=== PATIENT | female | born 1995 | race Hispanic/Latino ===

== ENCOUNTER → 2019-10-21 | Outpatient (CLI) | payer OTHER ==
--- NOTE | 2019-10-22 02:44 | REP ---
Clinical: well-being evaluation. Comparison: 10/10/2019 . Findings: Examination demonstrates a single live intrauterine in breech presentation. motion is identified by technologist. Placenta is noted posterior/right lateral and grade I I without evidence for placenta previa or abruption. Amniotic fluid volume is normal. Cervix measures 3.1 cm in length and appears closed. Nuchal cord noted. Gestational age by LMP 32 weeks 1 day with SHARI 12/15/2019 . FHR equals 141 beats per minute. Biophysical profile score: 6/8 ( breathing - 0 ) Amniotic fluid index: 21.4 cm Umbilical cord SD ratio: 2.01 Impression: 1. Single live intrauterine in breech presentation. 2. Biophysical profile score 6/8 (with 0 score for breathing). 3. Amniotic fluid index upper normal. 4. Nuchal cord noted. Electronically Signed by Archie Frederick MD 10/22/2019 02:35 A
== END ==
LOC: M LRY 13:55
PROVIDERS: ATTEND Advanced Practice Midwife
DX: O13.3 Gestational [pregnancy-induced] hypertension without significant proteinuria, third trimester (principal); Z3A.32 32 weeks gestation of pregnancy; O32.1XX0 Maternal care for breech presentation, not applicable or unspecified

== ENCOUNTER → 2019-10-30 | Outpatient (CLI) | payer OTHER ==
[~2019-10-30] MED LIST: ALBU83IN INH; ASPI81TA85 PO; FOLI1TAB11 PO; LABE10TAB PO; LORA24TA PO; PRENTAB9 PO; TUMS500C PO
--- NOTE | 2019-10-31 03:26 | REP ---
Clinical: well-being Comparison: 10/21/2019 . Findings: Examination demonstrates a single live intrauterine in cephalic presentation. motion is identified by technologist. Placenta is noted right posterior and grade I I without evidence for placenta previa or abruption. Amniotic fluid volume is normal. Cervix appears closed. No evidence for nuchal cord. Gestational age by LMP 33 weeks 4 days with SHARI 12/14/2019 . Gestational age by first US 33 weeks 3 days with SHARI 12/15/2019 . FHR equals 144 beats per minute. Biophysical profile score: 8/8 Amniotic fluid volume: 18.1 cm Umbilical cord SD ratio: 2.26 Impression: Single live advanced gestation in cephalic presentation. Biophysical profile score and amniotic fluid volume are normal. Electronically Signed by Archie Frederick MD 10/31/2019 03:18 A
== END ==
LOC: M LRY 13:59 → EDUNIT# 14:00
PROVIDERS: ATTEND Advanced Practice Midwife
DX: O10.013 Pre-existing essential hypertension complicating pregnancy, third trimester (principal); Z3A.33 33 weeks gestation of pregnancy

== ENCOUNTER 2019-11-27 07:51 | Inpatient (IN) | payer OTHER ==
[2019-11-27] VITALS (13 sets, daily range): BP systolic 131–165; BP diastolic 68–88
[~2019-11-27] VITALS: Ht 165.1 cm; Wt 157.8 kg
--- NOTE | 2019-11-27 10:17 | HPEPDOC ---
Obstetrical History & Physical General Date of Admission Nov 27, 2019 at 07:51 History of Present Illness 24-year-old 1 at 38 weeks 1 day estimated gestational age, presents for induction of labor secondary to chronic hypertension. care has been appropriate throughout. She initiated care first trimester for [facility]. She is currently on 100 mg of labetalol twice daily Chief Complaint: Induction of labor Information Provided By: Patient Age: 24 : 1 Care Care: Good Care Dating Final EDC: Dec 10, 2019 Final EDC by: LMP LMP: Mar 05, 2019 Past Medical History Past Obstetrical History : Past Obstetrical History: Primgravida Past Medical History Medical History Chronic hypertension, anxiety, depression, asthma, GERD, obesity Surgical History: Denies/None Family History Significant Family History: No pertinent family hx Social History Marital Status: Family situation: Spouse/partner home Psychosocial History: Anxiety, Depression * Smoker: non-smoker Alcohol: Denies Allergies Coded Allergies: codeine (Verified Allergy, Severe, HEART RACES AND THEN STOPS, 11/27/19) SEASONAL ALLERGIES (Verified Allergy, Mild, NASAL CONGESTION, 11/27/19) Medications Scheduled Aspirin (Aspir 81) 81 Mg Tablet.dr, 81 MG PO DAILY for pain Folic Acid (Folic Acid) 1 Mg Tablet, 1 TAB PO DAILY Labetalol HCl (Labetalol HCl) 100 Mg Tablet, 100 MG PO BID Loratadine/Pseudoephedrine (Loratadine-D 24Hr Tablet) 1 Each Tab.er.24h, 1 TAB PO DAILY No.137/Iron/Folic Acd ( Vitamin Tablet) 1 Each Tablet, 1 TAB PO DAILY Scheduled PRN Calcium Carbonate (Tums) 200 Mg Tab.chew, 1,000 MG PO for HEARTBURN Miscellaneous Medications Albuterol Sulf (Albuterol Sulfate) 2.5 Mg/3 Ml Vial.neb, 2.5 MG INH for COUGH FROM ALLERGIES Physical Examination Physical Examination GENERAL: Alert and oriented times three. BREAST: . ABDOMEN: Gravid and non-tender to touch. FETUS: Is vertex (VTX) by sterile vaginal examination (SVE), fetus is vertex (VTX) by [place]. HEART RATE: Regular rate and rhythm. LUNGS: Clear to auscultation (CTA). Laboratory Data 24H LABS Laboratory Tests 2 11/27/19 07:54: Serology Scanned Report Hepatitis B Testing Pertinent Laboratoy Data Blood Type: O+ RBC Antibody Screen: Negative HIV: Negative Hepatitis B: Negative Rubella: Nonreactive Chlamydia/Gonorrhea: Negative Vaginal Examination Dilation: None Station: -3 Cervical Position: Posterior Presentation: Cephalic presentation Assessment Variability: Moderate Accelerations: Positive Tocometer Contractions: No Assessment/Plan Assessment 1. 24-year-old 1 at 38 weeks 1 day estimated gestational age by last which. Here for induction labor secondary to chronic hypertension. 2. Morbid obesity. 3. Reassuring status. Admit to labor and delivery, CBC, RPR, type and screen preeclamptic panel. Patient thoroughly counseled regards, induction of labor. Discussed medication as well as procedures performed labor and delivery. She is also been verbally consented for emergency surgery, blood products anesthesia desires to proceed with admission. Will initiate her induction labor with 50 g oral misoprostol Plan Admit and orient. Wire Walker and consent. Diet: Regular. Group B Streptococcus (GBS) negative. Labs and intravenous (IV) per unit protocol. Counseled on Pitocin and induction of labor (IOL). Anticipate normal spontaneous delivery (). C-S as appropriate. OSBALDO SANTANA MD. Nov 27, 2019 10:17
[2019-11-27 11:20] LABS: HEMATOCRIT 35.1 % (36.0-47.0); HEMOGLOBIN 11.9 g/dl (12.0-15.5); MEAN CORPUSCULAR HEMOGLOBIN 28.3 pg (27.0-33.0); MEAN CORPUSCULAR HGB CONC 33.9 g/dl (32.0-36.5); MEAN CORPUSCULAR VOLUME 83.4 fl (80.0-96.0); PLATELET COUNT, AUTOMATED 358 10^3/uL (150-450); RED BLOOD COUNT 4.21 10^6/uL (4.00-5.40); WHITE BLOOD COUNT 10.7 10^3/uL (4.0-10.0)
[2019-11-27 11:24] LABS: ALT/SGPT 22 U/L (12-78); BILIRUBIN,TOTAL 0.2 MG/DL (0.2-1.0); GLOMERULAR FILTRATION RATE > 60.0 (>60); LDH LACTATE DEHYDROGENASE 140 U/L (84-246); URIC ACID 4.5 MG/DL (2.6-6.0)
[2019-11-27] MEDS: miSOPROStol 50 MCG 1/2 TAB (S0191) PO SCH ×3 (11:26→20:11)
[2019-11-27] MEDS ORDERED: TUMS500C PO (11:34)
[2019-11-27] MEDS ORDERED: ASPI81TA85 PO (11:34)
[2019-11-27] MEDS ORDERED: PRENTAB9 PO (11:34)
[2019-11-27] MEDS ORDERED: FOLI1TAB11 PO (11:34)
[2019-11-27] MEDS ORDERED: LORA24TA PO (11:34)
[2019-11-27] MEDS ORDERED: LABE10TAB PO (11:34)
[2019-11-27] MEDS ORDERED: ALBU83IN INH (11:44)
[2019-11-27] MEDS: LABETALOL 100 MG TAB PO SCH (21:19)
[2019-11-28] VITALS (19 sets, daily range): BP systolic 122–155; BP diastolic 59–86
[2019-11-28] MEDS: miSOPROStol 50 MCG 1/2 TAB (S0191) PO SCH ×5 (00:24→23:44)
--- NOTE | 2019-11-28 01:28 | IPNPDOC ---
Obstetrical Progress Note Date of Service Nov 28, 2019 Subjective Patient is doing well. She is on her fourth dose of misoprostol and describing her discomfort as crampy, increased segment and intensity. She is requesting IV pain medication. Objective Vital Signs Date Time Temp Pulse Resp B/P (MAP) Pulse Ox O2 Delivery O2 Flow Rate FiO2 11/27/19 22:31 79 144/84 (104) 11/27/19 19:47 97.2 18 Assessment Variability: Moderate Heart Rate Tracing: Category I Tocometer Contractions: Yes Frequency: irregular Assessment and Plan Age: 24 : 1 Status: Reassuring OSBALDO SANTANA MD. Nov 28, 2019 01:28
[2019-11-28] MEDS ORDERED: PROMETHAZINE INJ 25 MG/ML VIAL (J2550) IV PRN (01:30)
[2019-11-28] MEDS ORDERED: BUTORPHANOL 2 MG/ML INJ (J0595) IV ONE (01:30)
[2019-11-28] MEDS: LABETALOL 100 MG TAB PO SCH ×2 (08:50→20:50)
--- NOTE | 2019-11-28 10:06 | IPNPDOC ---
Text Note Date of Service The patient was seen on 11/28/19. NOTE Patient is a 24yo G1 @ 38+2wks gestation admitted yesterday for IOL secondary to CHTN. she has had 5doses of 50mcg cytotec. patient is feeling mild contractions vitals: normal to mild range nad laying in bed fht: 145/mod adrian/pos accel/no decel toco: ctx q 5-6mins ce: internal os closed/long/high, soft, mid. a/p patient not in labor. unable to place solorio bulb. cytotec 50mcg buccal. reassess in 4hrs. Yisel, VS,Freemanbone, I+O VS, Fishbone, I+O Laboratory Tests 11/27/19 10:10 Vital Signs Date Time Temp Pulse Resp B/P (MAP) Pulse Ox O2 Delivery O2 Flow Rate FiO2 11/28/19 08:50 88 146/86 11/28/19 08:49 98.4 18 I&O- Last 24 Hours up to 6 AM 11/28/19 06:00 Intake Total 960 ml Balance 960 ml ANDREI HINTON DO Nov 28, 2019 10:06
[2019-11-28] MEDS ORDERED: PROMETHAZINE INJ 25 MG/ML VIAL (J2550) IV ONE (18:45)
[2019-11-28] MEDS ORDERED: MORPHINE 10 MG/ML 1ML VIAL (J2270) IV ONE (18:45)
[2019-11-28] MEDS ORDERED: MORPHINE 10 MG/ML 1ML VIAL (J2270) IM ONE (18:45)
--- NOTE | 2019-11-28 18:48 | IPNPDOC ---
Text Note Date of Service The patient was seen on 11/28/19. NOTE late entry, procedure performed around 1430 today. Patient is a 24yo G1 @ 38+2wks gestation admitted yesterday for IOL secondary to CHTN. she has had 6doses of 50mcg cytotec. patient is feeling mild contractions vitals: normal to mild range nad laying in bed fht: 145/mod adrian/pos accel/no decel toco: ctx q 3-5mins ce: 1/long/high, mid, medium a/p patient not in labor. solorio bulb placed with 80cc of saline on cervical side. may redose cytotec as appropriate. Pain medication to start with IV. Le, DO VS,Fishbone, I+O VS, Fishbone, I+O Vital Signs Date Time Temp Pulse Resp B/P (MAP) Pulse Ox O2 Delivery O2 Flow Rate FiO2 11/28/19 18:29 98.4 83 127/83 (98) 11/28/19 14:57 18 I&O- Last 24 Hours up to 6 AM 11/28/19 06:00 Intake Total 960 ml Balance 960 ml ANDREI HINTON DO Nov 28, 2019 18:48
--- NOTE | 2019-11-28 23:28 | IPNPDOC ---
Obstetrical Progress Note Date of Service Nov 28, 2019 Subjective [place] of Care Note S: Received report from Dr. Morillo and assumed care of Aron, a 24yo at 38+2wks, who is on day two of her IOL for CHTN on meds (Labetalol 100mg BID). She has received 6 doses of cytotec (5 PO that she swallowed, and 1 buccal; all 50mcg). A CRB was placed at 1445 today. She reports +FM and some cramping, denies LOF/VB. Her is complicated by CHTN, Class III Obesity (BMI 49.6) - with excessive weight gain, anxiety/depression, and asthma. Objective O: VSS, afebrile, BP mild range (denies s/sx of Pre-E) FHR 140s, moderate variability, no accels or decels CTX by TOCO, q 3-5 minutes, sometimes spaced out and irregular VE: deferred as CRB is still snug in place Vital Signs Date Time Temp Pulse Resp B/P (MAP) Pulse Ox O2 Delivery O2 Flow Rate FiO2 11/28/19 20:50 144/79 11/28/19 20:49 78 18 11/28/19 18:29 98.4 Assessment and Plan Status: Reassuring Group B Streptococcus: Negative Anticipate: Vaginal Delivery Additional Comments A: 24yo at 38+2 weeks, not in labor, day #2 of IOL for CHTN, mild range BPs, Category I FHT. P: CEFM x2 Close monitoring of maternal/ status Plan to give 7th dose of 50mcg cytotec via buccal route - this was discussed with Dr. Morillo Plan to start pitocin later Co-Manage with OB Anticipate APRIL PICHARDO CNM Nov 28, 2019 23:28
[2019-11-29] VITALS (33 sets, daily range): BP systolic 95–143; BP diastolic 33–83
--- NOTE | 2019-11-29 07:36 | IPNPDOC ---
Text Note Date of Service The patient was seen on 11/29/19. NOTE patient is @ 38+4wks gestation, day #3 of induction for CHTN. she had 7 doses of misoprostol and solorio bulb placed and was removed 12 hrs after. No additional management was done overnight due to board acuity. She is feeling mild contractions. vitals: normal NAD fht: 130/mod adrian/pos accel/no decel toco: ctx q 7 mins a/p patient not in labor. will start pit. recheck 6hrs from start of regular ctx. arom as appropriate. VS,Fishbone, I+O VS, Fishbone, I+O Vital Signs Date Time Temp Pulse Resp B/P (MAP) Pulse Ox O2 Delivery O2 Flow Rate FiO2 11/29/19 07:14 98.2 75 20 128/71 (90) 99 Room Air ANDREI HINTON DO Nov 29, 2019 07:36
[2019-11-29] MEDS: LR 1,000 ML IV SCH ×3 (08:11→19:09)
[2019-11-29] MEDS: LABETALOL 100 MG TAB PO SCH ×2 (08:54→21:11)
[2019-11-29] MEDS: OXYTOCIN DRIP 30 UNITS in IV 1 EA IV SCH (10:46)
--- NOTE | 2019-11-29 17:17 | IPNPDOC ---
Text Note Date of Service The patient was seen on 11/29/19. NOTE patient is feeling mild contractions pit at 14mU Vitals: normal NAD fht: 135/mod adrian/pos accel/no decel toco: ctx q 3mins ce: 4/long/high, unable to AROM a/p patient in latent labor. continue to titrate pit to affect. recheck 6-8hrs. sooner PRN. Le, DO VS,Freemanbone, I+O VS, Fishbone, I+O Vital Signs Date Time Temp Pulse Resp B/P (MAP) Pulse Ox O2 Delivery O2 Flow Rate FiO2 11/29/19 15:55 73 95/53 (67) 11/29/19 15:51 98.1 20 98 Room Air ANDREI HINTON DO Nov 29, 2019 17:17
[2019-11-30] VITALS (47 sets, daily range): BP systolic 116–187; BP diastolic 56–96
--- NOTE | 2019-11-30 00:20 | IPNPDOC ---
Text Note Date of Service The patient was seen on 11/30/19. NOTE patient on 20mU pit. not feeling painful contraction. having difficulty tracing baby consistently due to maternal habitus. vitals: normal NAD FHT: 140/mod adrian/pos accel/no decel toco: ctx q 6mins ce: /-3, placement of fse caused AROM, clear fluid, baby's head well applied. a/p patient in latent labor. continue to titrate pit to effect. recheck in 4-6hrs. Yisel, VS,Anhe, I+O VS, Fishbone, I+O Vital Signs Date Time Temp Pulse Resp B/P (MAP) Pulse Ox O2 Delivery O2 Flow Rate FiO2 11/29/19 21:11 73 119/69 11/29/19 19:17 20 11/29/19 18:16 98.4 100 Room Air I&O- Last 24 Hours up to 6 AM 11/30/19 06:00 Intake Total 2930 ml Output Total 1600 ml Balance 1330 ml ANDREI HINTON DO Nov 30, 2019 00:20
[2019-11-30] MEDS ORDERED: MORPHINE 10 MG/ML 1ML VIAL (J2270) IV ONE (01:45)
[2019-11-30] MEDS ORDERED: PROMETHAZINE INJ 25 MG/ML VIAL (J2550) IV ONE (01:45)
[2019-11-30] MEDS ORDERED: MORPHINE 10 MG/ML 1ML VIAL (J2270) IM ONE (01:45)
--- NOTE | 2019-11-30 07:24 | IPNPDOC ---
Text Note Date of Service The patient was seen on 11/30/19. NOTE patient feeling painful contractions. AROM since midnight. She received morphine and phenergan for pain overnight. pit: 20mU vitals: normal nad fht; 145/mod adrian/pos accel/no decel toco: ctx q 2mins ce: 4-5/50/-3 a/p patient in latent labor. discussed possible need for IUPC if still unchanged with next check. continue with pit to effect. recheck in 4-6hrs. Le, DO VS,Freemanbone, I+O VS, Fishbone, I+O Vital Signs Date Time Temp Pulse Resp B/P (MAP) Pulse Ox O2 Delivery O2 Flow Rate FiO2 11/30/19 06:17 79 136/67 (90) 11/30/19 02:29 15 11/29/19 18:16 98.4 100 Room Air I&O- Last 24 Hours up to 6 AM 11/30/19 06:00 Intake Total 2930 ml Output Total 1600 ml Balance 1330 ml ANDREI HINTON DO Nov 30, 2019 07:24
[2019-11-30] MEDS: LR 1,000 ML IV SCH ×2 (08:11→16:52)
[2019-11-30] MEDS: LABETALOL 100 MG TAB PO SCH ×2 (08:12→22:24)
[2019-11-30 09:17] LABS: HEMATOCRIT 36.7 % (36.0-47.0); HEMOGLOBIN 12.3 g/dl (12.0-15.5); MEAN CORPUSCULAR HEMOGLOBIN 27.8 pg (27.0-33.0); MEAN CORPUSCULAR HGB CONC 33.5 g/dl (32.0-36.5); PLATELET COUNT, AUTOMATED 336 10^3/uL (150-450); RED BLOOD COUNT 4.42 10^6/uL (4.00-5.40); WHITE BLOOD COUNT 12.4 10^3/uL (4.0-10.0)
[2019-11-30] MEDS ORDERED: FENTANYL 2MCG/ML ROPIVACAINE 0.2% IN 0.9% NACL 100ML IVBAG As Ordered ONE ×2 (09:25→17:46)
[2019-11-30] MEDS: FENTANYL/ROPIVACAINE/NACL BAG 100 ML EPIDURAL SCH ×2 (09:58→17:50)
[2019-11-30] MEDS ORDERED: NALOXONE INJ 0.4MG/1ML VIAL (J2310 PER 1MG) IV PRN ×3 (10:30→21:51)
[2019-11-30] MEDS ORDERED: EPIDURAL/PCA KEYS XX PRN (10:30)
[2019-11-30] MEDS ORDERED: diphenhydrAMINE 50MG/ML VIAL (J1200) IV PRN ×3 (10:30→22:30)
[2019-11-30] MEDS ORDERED: REFRIGERATOR IV KEYS XX PRN (10:30)
[2019-11-30] MEDS ORDERED: ONDANSETRON 4MG/2ML VIAL IV PRN ×3 (10:30→22:30)
[2019-11-30] MEDS ORDERED: ePHEDrine SULFATE 25 MG/5 ML(5MG/ML) SYRINGE IV PRN (10:30)
[2019-11-30] MEDS ORDERED: LACTATED RINGER'S 1000 ML IV PRN (10:30)
[2019-11-30] MEDS ORDERED: EPIDURAL COMMENT XX SCH (10:30)
--- NOTE | 2019-11-30 15:52 | IPN ---
DATE: 11/30/2019 This lady is a 24-year-old 1 at 38 weeks and 1 day of gestation who presented for induction of labor because of chronic hypertension. She has been taking labetalol 100 twice a day throughout, and she was admitted on 11/27/2019, at 7:51 a.m. At that time when her induction was started, her risk factors are she has a class III obesity with a body mass index (BMI) starting at the first visit of 49.6. She in her total has gained 44 pounds. Her blood pressures have been remarkably stable with intermittent spikes on labetalol 100 twice a day. She has anxiety, depression, which is stable. Not taking any medications. She does have gastroesophageal reflux disease (GERD). She had asthma as a child, and she takes albuterol on a as-needed basis. Her induction was started with 50 mcg of oral misoprostol. Over the course of the last 4 days, she has had seven misoprostols at 50 mg a piece. She has had Pitocin running for the past 27 hours, maximized at 20 milliunits. She has had an intrauterine pressure catheter (IUPC) and a scalp because of her obesity and difficulty in tracing the baby. Baby is always had a category 1 strip with accelerations and moderate variability and no decelerations. She also had a Cook's catheter placed in the vagina at the cervical level, which fell out. She is GBS negative. She had a spontaneous rupture of membranes with the insertion of the IUPC. Presently, examining her, she is only 2-3 cm at -3 to -4, not well applied. She does have leaking intermittently, because she had had a spontaneous rupture of membranes at placement of the IUPC. We had a discussion with the patient regarding plan of care moving forward. The fact that she has been on 443 mL of Pitocin, seven misoprostols, one Cook's catheter, failure to make any progress with ruptured membranes, the likelihood of vaginal delivery is remote, and the recommendation would be preparedness for primary section. We discussed the risks and benefits of primary section, including hemorrhage, infection, perforation, , the remote possibility of a blood transfusion, the remote possibility of hysterectomy because of uncontrolled bleeding. This lady's uterus is at risk for a significant atony at delivery because of a prolonged use of Pitocin and misoprostol. We discussed with her the possible risks again of blood transfusion and/or hysterectomy if bleeding is under not under control. We did mention to her that we have medications at the time of delivery, either vaginal or abdominal, to have a Methergine, to have Cytotec per rectum. There is Hemabate, and there is tranexamic acid, which has been used in cases of hemorrhage. She presently has a good output. Her blood pressures are stabilized. Baby is in a category 1 strip. Our plan was to discontinue the Pitocin despite the fact she has IUPC and a scalp electrode in order to let the uterus relax enough to help with a contraction further along. After discussing this with the patient, she was somewhat concerned of the fact that she was told she was 5-6, when in fact she is 2-3 and -3, and presenting part is not well applied. We offered her a section under controlled situation. We also discussed the use of an Optifoam for incision dressing and the possible use of a specialized dressing which has a vacuum attached to it in order to reduce the incidence of infection. At present she has peau d'orange with edema, dependent in the incisional area and just above. We answered all her questions and her 's, and she had declined to have a section. She is requesting to wait for another physician.
[2019-11-30] MEDS: OXYTOCIN DRIP 30 UNITS in IV 1 EA IV SCH (16:52)
--- NOTE | 2019-11-30 16:56 | IPNPDOC ---
Text Note Date of Service The patient was seen on 11/30/19. NOTE patient has epidural. AROM since midnight. oxytocin is off since 1330. Vitals: normal NAD fht: 155/mod adrian/pos accel/no decel toco: not picking up contractions ce: 4-5/50/-3, IUPC placed a/p patient in latent labor, no change since last checked. Discussed with patient and spouse regarding my concern for failed induction. at this point, patient can opt to have a section vs. placing IUPC and start pitocin. Reassess in 2hrs. She is approaching 18hrs of ROM with oxytocin. concern for increased risk of infection with prolonged rupture of membranes and increased significant risk of bleeding with prolonged labor. patient and spouse expresses understand ing and desires to continue to attempt labor. DO ALVINA Morillo,Martin, I+O VS, Anhe, I+O Laboratory Tests 11/30/19 09:09 Vital Signs Date Time Temp Pulse Resp B/P (MAP) Pulse Ox O2 Delivery O2 Flow Rate FiO2 11/30/19 15:21 82 18 131/64 (86) 11/30/19 14:51 98.7 11/29/19 18:16 100 Room Air I&O- Last 24 Hours up to 6 AM 11/30/19 05:59 Intake Total 2930 ml Output Total 1600 ml Balance 1330 ml ANDREI MORILLO DO Nov 30, 2019 16:56
[2019-11-30] MEDS ORDERED: ceFAZolin SOD 2 GM in IV 1 EA IV ONE (20:15)
[2019-11-30] MEDS ORDERED: AZITHROMYCIN INJ 500 MG, VIAL MATE ADAPTER 1 EACH in D5W 250 ML IV ONE (20:15)
[2019-11-30] MEDS ORDERED: TRANEXAMIC ACID INJection 1,000 MG in D5W 100 ML IV ONE (20:15)
[2019-11-30] MEDS ORDERED: ceFAZolin SOD 1 GM in D5W MINI-BAG PLUS 50 ML IV ONE (20:15)
[2019-11-30] MEDS ORDERED: ceFAZolin SOD 3 GM in IV 1 EA IV ONE (20:15)
[2019-11-30] MEDS ORDERED: BICITRA 30ML SOLN UDC As Ordered ONE (20:16)
--- NOTE | 2019-11-30 20:18 | IPNPDOC ---
Text Note Date of Service The patient was seen on 11/30/19. NOTE patient on 12mU pit vitals: normal NAD fht:150/mod adrian/pos accel/no decel IUPC: ctx q 3-5mins ce: 4-5/50/-3 a/p no change. patient AROM and on pit > 18hrs. cervix remained solorio bulb cervix. at this point discussed with patient diagnosis of failed induction. Recommend delivery. Risks of bleeding needing blood transfusion, possible hysterectomy, infection needing take back and IV antibiotics, injury to bowel and bladder as well as post op pain discussed with patient. patient and spouse expressed understanding and agrees to move forward with section. consent forms signed. pit off. ancef 3gm, azithro 500mg IV and txa 1000mg ordered to give in OR. back to OR once team ready. Yisel, VS,Martin, I+O VS, Fishbone, I+O Laboratory Tests 11/30/19 09:09 Vital Signs Date Time Temp Pulse Resp B/P (MAP) Pulse Ox O2 Delivery O2 Flow Rate FiO2 11/30/19 16:51 98.1 79 18 145/74 (97) 11/29/19 18:16 100 Room Air I&O- Last 24 Hours up to 6 AM 11/30/19 06:00 Intake Total 2930 ml Output Total 1600 ml Balance 1330 ml ANDREI HINTON DO Nov 30, 2019 20:18
[2019-11-30] MEDS ORDERED: TRANEXAMIC ACID 100 MG/ML 10ML VIAL As Ordered ONE (20:19)
[2019-11-30] MEDS ORDERED: LIDOCAINE 2% W/EPINEPHRINE 20ML VIAL **PRES FREE As Ordered ONE (20:20)
[2019-11-30] MEDS ORDERED: OXYTOCIN INJ 10 UNITS/ML VIAL (J2590) As Ordered ONE (20:21)
[2019-11-30] MEDS ORDERED: BICITRA 30ML SOLN UDC PO ONE (20:30)
[2019-11-30] MEDS ORDERED: LIDOCAINE PRES-FREE 2% 10ML AMP As Ordered ONE (21:01)
[2019-11-30] MEDS ORDERED: ONDANSETRON 4MG/2ML VIAL As Ordered ONE (21:13)
[2019-11-30] MEDS ORDERED: KETOROLAC 60MG 2ML VIAL As Ordered ONE (21:13)
[2019-11-30] MEDS ORDERED: dexameTHASONE 4 MG/ML 1ML VIAL (J1100 PER 1MG) As Ordered ONE (21:13)
[2019-11-30] MEDS ORDERED: PHENYLephrine HCL 500 MCG/5 ML (100MCG/ML) SYRINGE (J2370) As Ordered ONE (21:28)
[2019-11-30] MEDS ORDERED: MORPHINE PRES-FREE INJ 10 MG/10 ML VIAL (J2274) As Ordered ONE (21:29)
[2019-11-30] MEDS ORDERED: miSOPROStol 200 MCG TAB (S0191) As Ordered ONE (21:40)
[2019-11-30] MEDS ORDERED: METOCLOPRAMIDE INJ 10MG/2ML VIAL (J2765 PER 1) IV PRN (21:51)
[2019-11-30] MEDS ORDERED: NALBUPHINE HCL 10 MG/ML AMP (J2300) IV PRN (21:51)
[2019-11-30] MEDS ORDERED: RHOGAM 300 MCG (1500 IU) INJ (J2790) IM SCH (22:00)
[2019-11-30] MEDS ORDERED: MEASLES,MUMPS,RUBELLA VACCINE INJ (MMR-II) (90707) SC SCH (22:00)
[2019-11-30] MEDS ORDERED: LR 1,000 ML IV SCH (22:00)
[2019-11-30] MEDS ORDERED: PERCOCET 5MG/325MG TAB PO PRN (22:00)
--- NOTE | 2019-11-30 22:16 | DNPDOC ---
[facility] Delivery Note Delivery Note DATE OF DELIVERY: 11/30/19 PREDELIVERY DIAGNOSIS: 1. 38+4/7 weeks' gestation. 2. CHTN 3. Obesity 4. Failed induction POST DELIVERY DIAGNOSIS: 1. 2. CHTN 3. Obesity PROCEDURE: Primary low transverse section MAKEUP ARTIST: Dr. Andrei Morillo DO ANESTHESIA: epidural ESTIMATED BLOOD LOSS: 600 mL. FINDINGS: 3320gm, 7lbs 50z, male infant, Score 9/9, compound right hand DELIVERY SUMMARY: Uncomplicated primary low transverse section. see operative notes for details. . ANDREI MORILLO DO Nov 30, 2019 22:16
[2019-11-30] MEDS ORDERED: MEPERIDINE INJ 25 MG/ML VIAL (J2175) IV PRN (22:30)
[2019-11-30] MEDS ORDERED: oxyCODONE 5MG TAB PO PRN (22:30)
[2019-11-30] MEDS ORDERED: fentaNYL 100 MCG/2 ML INJECTION (J3010) IV PRN (22:30)
[2019-11-30] MEDS ORDERED: KETOROLAC 30 MG/ML 1ML VIAL IV PRN (22:30)
[2019-11-30] MEDS ORDERED: HYDROMORPHONE HCL 0.5 MG/ 0.5 ML SYRINGE (J1170 PER 1) IV PRN (22:30)
[2019-11-30] MEDS ORDERED: ePHEDrine SULFATE 25 MG/5 ML(5MG/ML) SYRINGE As Ordered ONE (23:00)
[2019-11-30] MEDS ORDERED: PERCOCET 5MG/325MG TAB As Ordered ONE (23:30)
[2019-12-01] VITALS (9 sets, daily range): BP systolic 119–157; BP diastolic 60–89
[2019-12-01] MEDS ORDERED: miSOPROStol 200 MCG TAB (S0191) PR ONE (02:15)
[2019-12-01] MEDS: KETOROLAC 30 MG/ML 1ML VIAL IV SCH ×4 (03:41→22:02)
[2019-12-01] MEDS: ENOXAPARIN 40MG/0.4ML SYRINGE (J1650 PER 10MG) SC SCH ×2 (05:36→17:36)
[2019-12-01 09:34] LABS: HEMATOCRIT 32.9 % (36.0-47.0); MEAN CORPUSCULAR HGB CONC 33.4 g/dl (32.0-36.5); MEAN CORPUSCULAR VOLUME 83.7 fl (80.0-96.0); PLATELET COUNT, AUTOMATED 320 10^3/uL (150-450); RED BLOOD COUNT 3.93 10^6/uL (4.00-5.40); WHITE BLOOD COUNT 14.4 10^3/uL (4.0-10.0)
[2019-12-01] MEDS: PRENATAL VITAMINS CHEWABLE TABLET PO SCH (09:41)
[2019-12-01] MEDS: DOCUSATE SODIUM 100 MG CAP PO SCH ×2 (09:43→22:02)
[2019-12-01] MEDS: LABETALOL 100 MG TAB PO SCH ×2 (09:44→22:03)
--- NOTE | 2019-12-01 11:30 | POST-OPPD ---
Postoperative Procedure Note Date Of Procedure: Nov 30, 2019 Preoperative DIAGNOSIS: 1. 38+4/7 weeks' gestation. 2. CHTN 3. Obesity 4. Failed induction Post operative DIAGNOSIS: 1. 2. CHTN 3. Obesity PROCEDURE: Primary low transverse section ANESTHESIA: epidural ESTIMATED BLOOD LOSS: 600 mL. FINDINGS: 3320gm, 7lbs 50z, male , Score 9/9, compound right hand SURGEON: Sukumar Morillo DO MANAGER [employer]: Agnieszka Lanier MD ANESTHESIA: Epidural REPLACED: 1600cc LR DRAINS: 300cc urine COMPLICATIONS: none POSTOPERATIVE CONDITION: stable Detailed summary of procedure. Indication for procedure: Patient is a 24 yo G1 @ 38+4wks with admitted for IOL for CHTN. Her induction failed to progress passed 4cm dilation. Description of procedure: The risks, benefits, indications and alternatives to the procedure were reviewed with the patient and informed consent was obtained. Labor epidural anesthesia was dosed for surgical analgesic. She was prepped and draped in the normal sterile fashion in the dorsal supine position with a leftward tilt. The abdomen was entered through a pfannenstiel incision. Sharp dissection taken down to fascia layer. Fascia layer entered with sharply and carried lateral and upward bilaterally. Space between fascia and rectus muscle created sharply. The rectus muscles and peritoneum bluntly along midline and exposes the gravid uterus. Mobius retractor placed. The vesicouterine peritoneum was identified. A Liang uterine incision made sharply. The uterine incision was extended superolaterally. Baby cephalic. Head delivered through the hysterotomy. The anterior (left) shoulder delivered, followed by the posterior shoulder. Body followed with ease. The cord was clampedx2 and cut. The was handed off to baby nurse. Pitocin bolus started. Cord blood collected for routine lab. The placenta delivered spontaneously. The uterus was cleared of all clots and debris. The uterine incision was repaired with 2 layers of using 0-Chromic in a running locking fashion and 0-monocryl imbricating layer. Hysterotomy inspected to be hemostatic. Mobius retractor removed. Gutters were cleared of clots. Hysterotomy inspected to be hemostatic. The peritoneum, fascia and muscle bellies were inspected and noted to be hemostatic. The peritoneum brought back together midline with 3-0 vicryl. The fascia approximated with 0 vicryl suture in a running fashion. The subcutaneous tissue closed with 3-0 vicryl. The skin was closed with subcuticular 4-0 monocryl. Dressing applied. The vagina was cleared of clots. Sponge laps, needle and instruments count correct x 2. Patient taken to recovery room in stable condition. DO MARY JANE Morillo LUAT N. DO Nov 30, 2019 22:19
--- NOTE | 2019-12-01 12:36 | IPNPDOC ---
Progress Note Date of Service: Dec 01, 2019 Day#: 1 Progress Note SUBJECT: Patientis a 24 yo s/p PLTCD for failed induction POD #1. complicated by CHTN on labetalol 100mg BID. She has been ambulating, and tolerating regular diet. attempting breast feeding. Reports lochia is like a normal period. Saab out this am, not yet voided. OBJECTIVE: VITAL SIGNS: Within normal limits, afebrile. Alert and oriented times three. Abdomen: Fundus firm at U-2. Soft, NTTP. Incision with dressing on. LE: non pitting edema. symmetrical, no erythema/tenderness CBD reviewed. A/P pod #1, doing well. discussed postoperative care. continue routine post op care. encouraged BF. due to void later today. Continue with labetalol 100mg BID. disposition pending bp control. Le, DO VS, I&O, 24H, Fishbone Vital Signs/I&O Vital Signs Date Time Temp Pulse Resp B/P (MAP) Pulse Ox O2 Delivery O2 Flow Rate FiO2 12/01/19 10:00 96.7 81 18 97 Room Air 12/01/19 09:44 137/77 I&O- Last 24 Hours up to 6 AM 12/01/19 06:00 Intake Total 2015 ml Output Total 5475 ml Balance -3460 ml Laboratory Data 24H LABS Laboratory Tests 2 12/01/19 07:53: Nucleated Red Blood Cells % (auto) 0.0 CBC/BMP Laboratory Tests 12/01/19 07:53 ANDREI HINTON DO Dec 01, 2019 12:36
[2019-12-02 02:00] VITALS: BP 131/65
[2019-12-02] MEDS: IBUPROFEN 800 MG TAB PO SCH ×2 (05:46→13:51)
[2019-12-02] MEDS: ENOXAPARIN 40MG/0.4ML SYRINGE (J1650 PER 10MG) SC SCH ×2 (05:47→17:49)
[2019-12-02 06:00] VITALS: BP 136/73
[2019-12-02] MEDS: PRENATAL VITAMINS CHEWABLE TABLET PO SCH (07:34)
[2019-12-02 07:35] VITALS: BP 146/80
[2019-12-02] MEDS: DOCUSATE SODIUM 100 MG CAP PO SCH (07:35)
[2019-12-02] MEDS: LABETALOL 100 MG TAB PO SCH (07:35)
[2019-12-02 07:40] VITALS: BP 146/80
--- NOTE | 2019-12-02 09:59 | IPNPDOC ---
Progress Note Date of Service: Dec 02, 2019 Day#: 2 Progress Note SUBJECT: Patientis a 24 yo s/p PLTCD for failed induction POD #2. Pregna ncy complicated by CHTN on labetalol 100mg BID. She has been ambulating, urinating and tolerating regular diet. attempting breast feeding. Reports lochia is like a normal period. OBJECTIVE: VITAL SIGNS: Within normal limits, afebrile. Alert and oriented times three. Abdomen: Fundus firm at U-2. Soft, NTTP. Incision cleaned dried and intact. Dressing changed. LE: non pitting edema. symmetrical, no erythema/tenderness A/P pod #2, doing well. discussed postoperative care. continue routine post op care. encouraged BF. dressing changed today. d/c home today. Le, DO VS, I&O, 24H, Fishbone Vital Signs/I&O Vital Signs Date Time Temp Pulse Resp B/P (MAP) Pulse Ox O2 Delivery O2 Flow Rate FiO2 12/02/19 07:40 84 146/80 (102) 12/02/19 06:00 97.7 18 95 Room Air I&O- Last 24 Hours up to 6 AM 12/02/19 06:00 Intake Total 900 ml Output Total 300 ml Balance 600 ml ANDREI HINTON DO Dec 02, 2019 09:59
--- NOTE | 2019-12-02 10:01 | OBDS ---
[facility] Obstetrical Discharge Sum. Obstetrical Discharge Summary : 1 Term: 1 Pre-term: 0 Abortions: 0 Livin VDRL: Non-Reactive Rh: Positive Rubella: Immune Infant Weight: grams (3320) Anesthesia: Regional Anesthesia A/P, Post Course List any complications Admission diagnosis: 1. Gravid at 38+1 wks gestation 2. CHTN 3. Obesity Discharge diagnosis: 1. 2. CHTN 3. Obesity Condition at Discharge: stable Discharge Instructions: Home Activity: as tolerated. pelvic rest for 6wks Diet: regular Medications: filled at [facility] Follow-up: 1 week for incision check Hospital course: Patient admitted for induction of labor at 38+1wks due to chronic hypertension on medication. She was diagnosed with failed induction on hospital day #4. She underwent an uncomplicated primary section. course uncomplicated and patient discharged home on day #2. ANDREI HINTON DO Nov 30, 2019 22:22
[2019-12-02] MEDS: PERCOCET 5MG/325MG TAB PO PRN ×2 (11:00→17:49)
[2019-12-02 18:00] VITALS: BP 134/75
== END 2019-12-02 19:00 | disposition home or self-care (01) | DRG 540 ==
LOC: M LDI 07:51 → M OBS 11-30 23:43
PROVIDERS: ADMIT Obstetrics & Gynecology; ATTEND Obstetrics & Gynecology
PROC: 3E0P7GC Introduction of Other Therapeutic Substance into Female Reproductive, Via Natural or Artificial Opening (ICD-10-PCS; 2019-11-27)
PROC: 10D00Z1 Extraction of Products of Conception, Low, Open Approach (ICD-10-PCS; principal; 2019-11-30 20:30)
DX: O10.02 Pre-existing essential hypertension complicating childbirth (principal); E66.01 Morbid (severe) obesity due to excess calories; O99.214 Obesity complicating childbirth; Z3A.38 38 weeks gestation of pregnancy; O99.52 Diseases of the respiratory system complicating childbirth; J45.909 Unspecified asthma, uncomplicated; O61.0 Failed medical induction of labor; Z37.0 Single live birth; O99.62 Diseases of the digestive system complicating childbirth; K21.9 Gastro-esophageal reflux disease without esophagitis

== ENCOUNTER 2020-03-31 11:16 | Emergency (ER) | payer OTHER ==
[~2020-03-31] VITALS: Ht 165.1 cm; Wt 139.2 kg
[~2020-03-31 11:16] MED LIST changes: -ASPI81TA85 PO; +ASPI81TA86 PO
[2020-03-31 11:18] VITALS: BP 159/87
[2020-03-31] MEDS ORDERED: VENL1TAB35 PO (11:25)
[2020-03-31] MEDS ORDERED: CLARITIN (11:25)
[2020-03-31] MEDS ORDERED: LABE100T36 PO (11:49)
== END 2020-03-31 11:52 | disposition home or self-care (01) ==
LOC: M ED 11:16
DX: Z76.0 Encounter for issue of repeat prescription (principal); I10 Essential (primary) hypertension; F41.9 Anxiety disorder, unspecified; F32.9 Major depressive disorder, single episode, unspecified; E28.2 Polycystic ovarian syndrome; Z88.6 Allergy status to analgesic agent